=== PATIENT | male | born 1980 | race Caucasian/White ===

== ENCOUNTER 2018-02-22 09:46 | Day surgery (SDC) | payer BC, OTHER ==
[2018-02-21 09:06] VITALS: BMI 27.0
[~2018-02-22 09:46] MED LIST: DEXAMETHASONE SOD PHOSPHATE 10 MG/ML 1 ML VIAL IV ONE; HEPARIN SODIUM,PORCINE 5,000 UNIT/ML 1 ML VIAL SQ ONE; HYDROmorphone 1 MG/ML 1 ML SYRINGE IVP PRN; LIDOCAINE 1% 20 ML VIAL (10MG/ML) FOR IV START INTRADERMA PRN; MIDAZOLAM 2 MG/2 ML VIAL IV PRN; ONDANSETRON 4 MG/2 ML VIAL IVP ONE; ceFAZolin IN SWFI 2 GM/20 ML SYRINGE IVP ONE; fentaNYL (PF) 50 MCG/ML 2 ML AMP IV PRN
[2018-02-22 11:02] VITALS: RESP 16
[2018-02-22] MEDS: LACTATED RINGERS 1,000 ML IV SCH ×2 (11:13→11:14)
--- NOTE | 2018-02-22 11:31 | P.GSHP ---
History of Present Illness H&P Date: 02/22/18 Chief Complaint: Right inguinal hernia This is a 37-year-old male presents today for laparoscopic robotic-assisted repair of right inguinal hernia. Past Medical History Past Medical History: Asthma, Musculoskeletal Disorder Additional Past Medical History / Comment(s): Degenerative Disc Disease. History of Any Multi-Drug Resistant Organisms: None Reported Additional Past Surgical History / Comment(s): Jaw surgery, wisdom teeth extracted. Past Anesthesia/Blood Transfusion Reactions: No Reported Reaction Past Psychological History: No Psychological Hx Reported Smoking Status: Former smoker Past Alcohol Use History: Occasional Additional Past Alcohol Use History / Comment(s): Quit smoking 1 yr ago, smoked on and off for 10 yrs, 1/2-1PPD. Past Drug Use History: Marijuana Additional Drug Use History / Comment(s): Uses medical marijuana daily. Patient aware not to use 24hrs prior to procedure. - Past Family History Mother Family Medical History: No Reported History Medications and Allergies Home Medications Medication Instructions Recorded Confirmed Type Albuterol Inhaler [Ventolin Hfa 1 - 2 puff INHALATION Q6HR PRN 11/18/15 History Inhaler] EPINEPHrine (Auto Inject) [Epipen] 0.3 mg IM ONCE PRN #1 syringe 11/18/15 Rx Ibuprofen [Motrin] 800 mg PO HS 02/21/18 02/22/18 History Vicodin(Unknown Dose) 1 tab PO DAILY 02/21/18 02/22/18 History Allergies Allergy/AdvReac Type Severity Reaction Status Date / Time venom-honey bee Allergy Anaphylaxis Verified 02/22/18 11:03 [bee venom (honey bee)] Surgical - Exam Vital Signs Temp Pulse Resp BP Pulse Ox 97.6 F 79 16 165/75 98 02/22/18 11:00 02/22/18 11:00 02/22/18 11:00 02/22/18 11:00 02/22/18 11:00 - General well developed, no distress - Eyes PERRL - ENT normal pinna - Neck no masses - Respiratory normal expansion - Cardiovascular Rhythm: regular - Abdomen Abdomen: soft, non tender Assessment and Plan Assessment: Right inguinal hernia. We'll perform laparoscopic robotic-assisted repair.
--- NOTE | 2018-02-22 11:39 | P.ONQ ---
Anesthesiology Proc Note - PNB - Peripheral Nerve Block Performed Right Transversus Abdominis Single Time Out Performed: Yes Procedure Start Time: 11:24 Procedure Stop Time: 11:35 Indication: Requested by physician Specifically requested for management of pain by DrLiborio: Mal Eng Sedation Type: Sedate with meaningful contact maintained Preparation: Sterile Prep Position: Supine (pujunk) Needle Size: 100mm (4") Needle Gauge: 20 Technique: Ultrasound (ropivacaine 0.25 % with epi 1/200 20 ml plus lidocaine 1 % with ep 1/200 k 10 ml ) Blood Aspirated: No Pain Paresthesia on Injection Noted: No Resistance on Injection: Normal Events: Uneventful and Well Tolerated
[2018-02-22] MEDS ORDERED: GLYCOPYRROLATE 0.2 MG/ML 2 ML VIAL ONE (11:58)
[2018-02-22] MEDS ORDERED: ROCURONIUM BROMIDE 10 MG/ML 10 ML VIAL IV ONE (11:58)
[2018-02-22] MEDS ORDERED: LIDOCAINE 1%-EPI 1:100,000 20 ML VIAL ONE (11:58)
[2018-02-22] MEDS ORDERED: ROPIVACAINE 5 MG/ML 30 ML VIAL ONE (11:58)
[2018-02-22] MEDS ORDERED: MIDAZOLAM 2 MG/2 ML VIAL ONE (11:58)
[2018-02-22] MEDS ORDERED: NEOSTIGMINE 1 MG/ML 10 ML VIAL ONE (11:58)
[2018-02-22] MEDS ORDERED: fentaNYL (PF) 50 MCG/ML 2 ML AMP ONE (11:58)
[2018-02-22] MEDS ORDERED: HYDROmorphone (PF) 1 MG/ML ONE (11:58)
[2018-02-22] MEDS ORDERED: PROPOFOL 10 MG/ML 20 ML VIAL IV ONE (11:58)
[2018-02-22] MEDS ORDERED: BUPIVACAIN-EPI 0.25%-1:200,000 30 ML VIAL SQ ONE (12:28)
--- NOTE | 2018-02-22 12:54 | P.OP ---
Date of Procedure: 02/22/18 Preoperative Diagnosis: Right inguinal hernia Postoperative Diagnosis: Right inguinal hernia Procedure(s) Performed: For scopic robotic-assisted repair of right inguinal hernia Anesthesia: NEMO Surgeon: Mal Eng Pathology: none sent Condition: stable Disposition: PACU Description of Procedure: The patient's placed on the operating table in the supine position. The patient received general anesthesia. The patient's abdomen was prepped and draped in usual sterile fashion. The skin was anesthetized 1% local Xylocaine at the incision sites. Using an 11 blade a skin incision was made at the umbilicus. The fascia was grasped with a Carlos Alberto and then the peritoneal cavity was entered with the Veress needle. Position of the Veress needle was confirmed with a positive drop test. After adequate insufflation a 5 mm trocar was placed into the peritoneal cavity. The Laparoscope was placed the peritoneal cavity. And a robotic 8 mm trocar was placed in the right lateral position and then another 8 mm robotic trochars placed in the left lateral position. The original 5 mm trocar was exchanged for a 12 mm trocar. The patient was placed in reverse Trendelenburg and then the patient was docked to the robot. Next the peritoneum over top of the hernia was incised and then using blunt and sharp dissection and electrocautery the hernia sac was dissected free from the floor of the inguinal canal. The hernia sac was completely reduced into the peritoneal cavity. And then using the Pro transportation associate mesh the hernia was repaired. The peritoneum was then sutured with 20V lock suture. The patient was then undocked the robot. The needle was withdrawn from the peritoneal cavity. The umbilical trocar site was closed with 0 Ethibond suture. The skin was closed interrupted 3-0 Monocryl suture. Dermabond dressing was applied. Patient was sent to recovery in stable condition.
[2018-02-22 13:07] VITALS: TEMP 97.4
[2018-02-22] MEDS ORDERED: HYDROcodone/APAP 7.5-325MG 1 EACH TAB PO ONE (14:02)
[2018-02-22 14:23] VITALS: BP 150/72; PULSE 78
== END 2018-02-22 14:37 | disposition home or self-care (01) ==
LOC: OR 09:46
PROVIDERS: ATTEND Surgery
DX: K40.90 Unilateral inguinal hernia, without obstruction or gangrene, not specified as recurrent (principal); J45.909 Unspecified asthma, uncomplicated; Z79.1 Long term (current) use of non-steroidal anti-inflammatories (NSAID); Z79.891 Long term (current) use of opiate analgesic; Z91.030 Bee allergy status; Z87.891 Personal history of nicotine dependence
CPT/HCPCS: 64486; 49650; C1781; J2250; J1644; J1100; J2710; J2405; J3010; J1170; J2795; J2704; J0690; 64488

== ENCOUNTER 2021-07-23 23:49 | Emergency (ER) | payer BC ==
[2021-07-23 23:56] VITALS: TEMP 98
[2021-07-24] MEDS ORDERED: MORPHINE SULFATE 4 MG/ML SYRINGE IVP STA (00:34)
[2021-07-24] MEDS ORDERED: SODIUM CHLORIDE 0.9% 1,000 ML IV STA (00:34)
[2021-07-24] MEDS ORDERED: AMOXIC-POT CLAV 875MG STARTER PACK 2 TAB BTL PO STA (00:35)
[2021-07-24] MEDS ORDERED: AMPICILLIN-SULBACTAM 3 GM in SODIUM CHLORIDE 0.9% 100 ML IVPB STA (00:35)
[2021-07-24] MEDS ORDERED: BACITRACIN OINT 1 EACH PACKET TOPICAL ONE (01:13)
[2021-07-24] MEDS ORDERED: LIDOCAINE 1% INJ 10MG/ML (5 ML VIAL-PF) SQ ONE ×2 (01:14→01:16)
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
[2021-07-24 01:56] VITALS: RESP 16
[2021-07-24 02:08] VITALS: BP 168/97; PULSE 88
== END 2021-07-24 02:07 | disposition home or self-care (01) ==
LOC: EC 23:49
DX: Z88.1 Allergy status to other antibiotic agents (principal); Z91.030 Bee allergy status; J45.909 Unspecified asthma, uncomplicated; F17.200 Nicotine dependence, unspecified, uncomplicated
CPT/HCPCS: 12004; 99283; 96365; 96375; J2270; J2001; J0295

== ENCOUNTER 2023-09-09 04:56 | Inpatient (IN) | payer OTHER ==
[2023-09-09] MEDS: ONDANSETRON 4 MG/2 ML VIAL IVP STA (05:02)
[2023-09-09] MEDS: LORazepam 2 MG/ML INJ IV STA (05:08)
[2023-09-09] MEDS: SODIUM CHLORIDE 0.9% 1,000 ML IV STA ×2 (05:09→06:55)
[2023-09-09 05:15] LABS: Glucose,Whole Blood 217 mg/dL (70-110)
--- NOTE | 2023-09-09 05:22 | ED ---
General Adult HPI - General Chief complaint: Trauma Stated complaint: mental health Time Seen by Provider: 09/09/23 05:00 Source: patient, EMS, RN notes reviewed, old records reviewed Mode of arrival: EMS Limitations: no limitations - History of Present Illness Initial comments: Patient is a 42-year-old male who presents emergency department [facility] where he attempted suicide by hanging. Apparently patient had his sentencing today, and was found hanging in his cell today shortly prior to arrival. Face was blue. He was hanging by his sheet. Unknown how long he was hanging for. Presents for further evaluation at this time. After they cut the patient down he was combative but responses. Was brought here for further evaluation. Was spitting blood and had blood coming from his nose and was throwing up. Currently is cooperative, is complaining of jaw pain. Is able to answer basic questions and follow commands. Is tolerating oral secretions. Presents for further evaluation. Does not appear to want to speak about what occurred. - Related Data Home Medications Medication Instructions Recorded Confirmed Albuterol Inhaler [Ventolin Hfa 1 - 2 puff INHALATION Q6HR PRN 11/18/15 02/22/18 Inhaler] Ibuprofen [Motrin] 800 mg PO HS 02/21/18 02/22/18 Vicodin(Unknown Dose) 1 tab PO DAILY 02/21/18 02/22/18 Previous Rx's Medication Instructions Recorded EPINEPHrine (Auto Inject) [Epipen] 0.3 mg IM ONCE PRN #1 syringe 11/18/15 Docusate [Colace] 100 mg PO BID #20 capsule 02/22/18 HYDROcodone/APAP 7.5-325MG [[place] 1 tab PO Q4H PRN 3 Days #18 tab 02/22/18 7.5-325] Allergies Allergy/AdvReac Type Severity Reaction Status Date / Time cephalexin [From Keflex] Allergy Unknown Verified 07/23/21 23:57 Iodinated Contrast Media Allergy Unknown Verified 09/09/23 05:56 venom-honey bee Allergy Anaphylaxis Verified 07/23/21 23:56 [bee venom (honey bee)] Review of Systems ROS Statement: Those systems with pertinent positive or pertinent negative responses have been documented in the HPI. Review of Systems: CONST: Denies fever EYES: Denies blurry vision ENT: Endorses jaw pain C/V: Denies Chest pain RESP: Denies shortness of breath GI: Denies abdominal pain : Denies dysuria SKIN: Denies rash. MSK: Denies joint pain. NEURO: Denies headache ROS Other: All systems not noted in ROS Statement are negative. Past Medical History Past Medical History: Asthma, Musculoskeletal Disorder Additional Past Medical History / Comment(s): Degenerative Disc Disease. History of Any Multi-Drug Resistant Organisms: None Reported Additional Past Surgical History / Comment(s): Jaw surgery, wisdom teeth extracted. Past Anesthesia/Blood Transfusion Reactions: No Reported Reaction Past Psychological History: No Psychological Hx Reported Smoking Status: Current every day smoker Past Alcohol Use History: Occasional Past Drug Use History: Marijuana - Past Family History Mother Family Medical History: No Reported History General Exam - General Exam Comments Initial Comments: General: Appears in mild to moderate distress. HEAD: Abrasion over the forehead. Negative Liu sign. Negative raccoon eyes. EYES: PERRLA, EOMI, conjunctiva normal, no discharge. Pupils are 3 mm and equal bilaterally. ENT: Hearing grossly intact. No obvious stridor auscultated. Tenderness palpation along the mandible. Some tongue edema with bleeding from suspected laceration. No obvious posterior oropharyngeal swelling or bleeding. Uvula appears midline. Tolerating oral secretions. Patient does have red alarcon on either side of his neck likely from the sheath that was tied around it during the strangulation attempt. RESPIRATORY: Clear breath sounds bilaterally. No wheezes, rales, or rhonchi. Hypoxia. No respiratory distress. C/V: Regular rate and rhythm. S1 and S2 auscultated, no edema, peripheral pulses 2+ and intact throughout ABD: Abd is soft, nontender, nondistended EXT: Normal range of motion, no obvious deformity SKIN: Abrasion over the right hip area. Patient also has a superficial abrasion over the forehead. NEURO: Alert and oriented x 3-4. No obvious focal deficits. GCS is 14-15 at this time Limitations: no limitations Course Vital Signs 09/09/23 09/09/23 09/09/23 04:58 05:15 05:32 Temperature 99.8 F H Pulse Rate 115 H 97 100 Respiratory 20 18 13 Rate Blood Pressure 126/96 98/70 120/71 O2 Sat by Pulse 96 95 97 Oximetry 09/09/23 09/09/23 09/09/23 06:08 06:15 06:30 Temperature Pulse Rate 101 H 98 95 Respiratory 20 19 18 Rate Blood Pressure 116/62 116/62 115/70 O2 Sat by Pulse 96 97 94 L Oximetry Procedures - Restraint - Face to Face Restraint Occurrence 1 Patient's Immediate Situation: Endangers self safety, Endangers others' safety, Endangers staff safety, Violent behavior Patient's Reaction to the Intervention: Uncooperative Patient's Medical & Behavioral Condition: Awake, Alert, Follows directions Face to Face Eval of Restraint Date: 09/09/23 Face to Face Eval of Restraint Time: 05:05 Medical Decision Making - Medical Decision Making Was pt. sent in by a medical professional or institution (, PA, [employer], urgent c are, hospital, or fci...) When possible be specific @ -Patient presents from [facility] for evaluation following attempted suicide by strangulation and hanging. Did you speak to anyone other than the patient for history (EMS, parent, family, police, friend...)? What history was obtained from this source @ -I spoke with police officers who provided details of the scene. Did you review nursing and triage notes (agree or disagree)? Why? @ -I reviewed and agree with nursing and triage notes Were old charts reviewed (outside hosp., previous admission, EMS record, old EKG, old radiological studies, urgent care reports/EKG's, fci records)? Report findings @ -No old charts were reviewed Differential Diagnosis (chest pain, altered mental status, abdominal pain women, abdominal pain men, vaginal bleeding, weakness, fever, dyspnea, syncope, headache, dizziness, GI bleed, back pain, seizure, CVA, palpatations, mental health, musculoskeletal)? @ -Differential Musculoskeletal Muscular strain, contusion, ligament sprain, fracture, arthritis, septic arthritis, bursitis, cellulitis, muscle spasm, nerve compression, DVT, arterial occlusion, herpes zoster, electrolyte abnormality, tumor.... This is not meant to be in all inclusive list. Also includes soft tissue neck injury, intracranial injury, suicide attempt. This list is not all inclusive. EKG interpreted by me (3pts min.). @ -As above X-rays interpreted by me (1pt min.). @ -Chest x-ray reveals no obvious acute cardiopulmonary process. Pelvis x-ray shows no obvious acute injury. CT interpreted by me (1pt min.). @ -CT brain, C-spine, face negative for any obvious acute fracture or injury. CT angiogram of the neck negative for any obvious injury. U/S interpreted by me (1pt. min.). @ -None done What testing was considered but not performed or refused? (CT, X-rays, U/S, labs)? Why? @ -None What meds were considered but not given or refused? Why? @ -None Did you discuss the management of the patient with other professionals (professionals i.e. , PA, [employer], lab, RT, psych nurse, social work program coordinator, billing adjudicator, t eacher, trust officer, telehealth case manager)? Give summary @ -Discussed with trauma on-call Dr. Eng who accepted the admission onto his service. Was otherwise in agreement with the plan. Spoke with medicine consulting service Dr. Dennis who accepted the consult. Was smoking cessation discussed for >3mins.? @ -No Was critical care preformed (if so, how long)? @ -Yes, 32 minutes. Were there social determinants of health that impacted care today? How? (Homelessness, low income, unemployed, alcoholism, drug addiction, transportation, low edu. Level, literacy, decrease access to med. care, penitentiary, rehab)? @ -No Was there de-escalation of care discussed even if they declined (Discuss DNR or withdrawal of care, Hospice)? DNR status @ -No What co-morbidities impacted this encounter? (DM, HTN, Smoking, COPD, CAD, Cancer, CVA, ARF, Chemo, Hep., AIDS, mental health diagnosis, sleep apnea, morbid obesity)? @ -None Was patient admitted / discharged? Hospital course, mention meds given and route, prescriptions, significant lab abnormalities, going to OR and other pertinent info. @ -Patient presents following a strangulation attempt and suicide attempt at penitentiary. Currently has no significant injuries. Based on trauma activation criteria, with no obvious significant injuries that is at my discretion. Therefore he was not activated as a trauma. However ATLS protocol followed. Cervical collar placed. Patient treated with 2 L fluid bolus, Tdap, Zofran. Patient does have a contrast allergy and was given precontrast meds. Patient became more cooperative. Initially he did require restraints as he was combative and uncooperative. Patient did respond well and these were removed eventually. Trauma labs remarkable for leukocytosis of 22.9. Patient has a metabolic acidosis likely secondary to lactic acidosis likely secondary to the strangulation attempt and hypoxia. Lactic acid is 8.8. Urine is still pending. EKG shows no signs of acute ischemia. Imaging is unremarkable. On reevaluation, patient still complaining of jaw pain. Cervical collar was removed. Vital signs remained within acceptable limits. No respiratory distress. Still tolerating secretions. I did recommend observation at this time and he was in agreement the plan. At this time I did reach out to the on-call trauma surgery Dr. Eng was in agreement the plan. Plan is to repeat blood work as well as consult medicine Dr. Dennis. I spoke with Dr. Dennis who was in agreement the plan. Suicide pre cautions placed. Consult placed to psychiatry. Undiagnosed new problem with uncertain prognosis? @ -No Drug Therapy requiring intensive monitoring for toxicity (Heparin, Nitro, Insulin, Cardizem)? @ -No Were any procedures done? @ -No Diagnosis/symptom? @ -Suicide attempt by hanging and strangulation, lactic acidosis secondary to prolonged hypoxia Acute, or Chronic, or Acute on Chronic? @ -Acute Uncomplicated (without systemic symptoms) or Complicated (systemic symptoms)? @ -Complicated Side effects of treatment? @ -No Exacerbation, Progression, or Severe Exacerbation? @ -No Poses a threat to life or bodily function? How? (Chest pain, [place], [place], pneumonia, PE, COPD, DKA, ARF, appy, cholecystitis, CVA, Diverticulitis, Homicidal, Suicidal, threat to staff... and all critical care pts) @ -Yes - Lab Data Result diagrams: 09/09/23 05:09 09/09/23 05:10 Lab Results 09/09/23 09/09/23 09/09/23 Range/Units 05:09 05:10 05:10 WBC 22.9 H (3.8-10.6) k/uL RBC 4.96 (4.30-5.90) m/uL Hgb 15.0 (13.0-17.5) gm/dL Hct 43.7 (39.0-53.0) % MCV 88.0 (80.0-100.0) fL MCH 30.1 (25.0-35.0) pg MCHC 34.3 (31.0-37.0) g/dL RDW 12.7 (11.5-15.5) % Plt Count 420 (150-450) k/uL MPV 7.8 Neutrophils % 87 % Lymphocytes % 7 % Monocytes % 5 % Eosinophils % 0 % Basophils % 1 % Neutrophils # 19.9 H (1.3-7.7) k/uL Lymphocytes # 1.5 (1.0-4.8) k/uL Monocytes # 1.2 H (0-1.0) k/uL Eosinophils # 0.1 (0-0.7) k/uL Basophils # 0.1 (0-0.2) k/uL PT 11.2 (10.0-12.5) sec INR 1.0 (<1.2) APTT 25.3 (22.0-30.0) sec VBG pH (7.31-7.41) VBG pCO2 (37-51) mmHg VBG HCO3 (24-28) mmol/L Sodium 139 (137-145) mmol/L Potassium 3.4 L (3.5-5.1) mmol/L Chloride 107 (98-107) mmol/L Carbon Dioxide 14 L (22-30) mmol/L Anion Gap 18 mmol/L BUN 11 (9-20) mg/dL Creatinine 1.11 (0.66-1.25) mg/dL Est GFR (CKD-EPI)AfAm >90 (>60 ml/min/1.73 sqM) Est GFR (CKD-EPI)NonAf 82 (>60 ml/min/1.73 sqM) Glucose 201 H (74-99) mg/dL POC Glucose (mg/dL) (70-110) mg/dL POC Glu Textile Screen Printer ID Plasma Lactic Acid Rudi (0.7-2.0) mmol/L Calcium 9.2 (8.4-10.2) mg/dL Total Bilirubin 0.6 (0.2-1.3) mg/dL AST 39 (17-59) U/L ALT 38 (4-49) U/L Alkaline Phosphatase 67 (38-126) U/L Total Protein 7.9 (6.3-8.2) g/dL Albumin 4.6 (3.5-5.0) g/dL Salicylates mg/dL Acetaminophen ug/mL Serum Alcohol <10 mg/dL Blood Type Blood Type Recheck Bld Type Recheck Status Antibody Screen Spec Expiration Date 09/09/23 09/09/23 09/09/23 Range/Units 05:10 05:10 05:10 WBC (3.8-10.6) k/uL RBC (4.30-5.90) m/uL Hgb (13.0-17.5) gm/dL Hct (39.0-53.0) % MCV (80.0-100.0) fL MCH (25.0-35.0) pg MCHC (31.0-37.0) g/dL RDW (11.5-15.5) % Plt Count (150-450) k/uL MPV Neutrophils % % Lymphocytes % % Monocytes % % Eosinophils % % Basophils % % Neutrophils # (1.3-7.7) k/uL Lymphocytes # (1.0-4.8) k/uL Monocytes # (0-1.0) k/uL Eosinophils # (0-0.7) k/uL Basophils # (0-0.2) k/uL PT (10.0-12.5) sec INR (<1.2) APTT (22.0-30.0) sec VBG pH 7.42 H (7.31-7.41) VBG pCO2 25 L (37-51) mmHg VBG HCO3 16 L (24-28) mmol/L Sodium (137-145) mmol/L Potassium (3.5-5.1) mmol/L Chloride (98-107) mmol/L Carbon Dioxide (22-30) mmol/L Anion Gap mmol/L BUN (9-20) mg/dL Creatinine (0.66-1.25) mg/dL Est GFR (CKD-EPI)AfAm (>60 ml/min/1.73 sqM) Est GFR (CKD-EPI)NonAf (>60 ml/min/1.73 sqM) Glucose (74-99) mg/dL POC Glucose (mg/dL) (70-110) mg/dL POC Glu Textile Screen Printer ID Plasma Lactic Acid Rudi 8.8 H* (0.7-2.0) mmol/L Calcium (8.4-10.2) mg/dL Total Bilirubin (0.2-1.3) mg/dL AST (17-59) U/L ALT (4-49) U/L Alkaline Phosphatase (38-126) U/L Total Protein (6.3-8.2) g/dL Albumin (3.5-5.0) g/dL Salicylates mg/dL Acetaminophen ug/mL Serum Alcohol mg/dL Blood Type O Positive Blood Type Recheck O Pos Bld Type Recheck Status No Antibody Screen NEGATIVE Spec Expiration Date 09/12/2023 - 230909/09/23 09/09/23 Range/Units 05:13 05:14 WBC (3.8-10.6) k/uL RBC (4.30-5.90) m/uL Hgb (13.0-17.5) gm/dL Hct (39.0-53.0) % MCV (80.0-100.0) fL MCH (25.0-35.0) pg MCHC (31.0-37.0) g/dL RDW (11.5-15.5) % Plt Count (150-450) k/uL MPV Neutrophils % % Lymphocytes % % Monocytes % % Eosinophils % % Basophils % % Neutrophils # (1.3-7.7) k/uL Lymphocytes # (1.0-4.8) k/uL Monocytes # (0-1.0) k/uL Eosinophils # (0-0.7) k/uL Basophils # (0-0.2) k/uL PT (10.0-12.5) sec INR (<1.2) APTT (22.0-30.0) sec VBG pH (7.31-7.41) VBG pCO2 (37-51) mmHg VBG HCO3 (24-28) mmol/L Sodium (137-145) mmol/L Potassium (3.5-5.1) mmol/L Chloride (98-107) mmol/L Carbon Dioxide (22-30) mmol/L Anion Gap mmol/L BUN (9-20) mg/dL Creatinine (0.66-1.25) mg/dL Est GFR (CKD-EPI)AfAm (>60 ml/min/1.73 sqM) Est GFR (CKD-EPI)NonAf (>60 ml/min/1.73 sqM) Glucose (74-99) mg/dL POC Glucose (mg/dL) 217 H (70-110) mg/dL POC Glu Textile Screen Printer ID Kimmie Puckett Plasma Lactic Acid Rudi (0.7-2.0) mmol/L Calcium (8.4-10.2) mg/dL Total Bilirubin (0.2-1.3) mg/dL AST (17-59) U/L ALT (4-49) U/L Alkaline Phosphatase (38-126) U/L Total Protein (6.3-8.2) g/dL Albumin (3.5-5.0) g/dL Salicylates <1.0 mg/dL Acetaminophen <10.0 ug/mL Serum Alcohol mg/dL Blood Type Blood Type Recheck Bld Type Recheck Status Antibody Screen Spec Expiration Date Critical Care Time Critical Care Time: Yes Total Critical Care Time: 32 Disposition Clinical Impression: Suicide attempt by hanging, Lactic acidosis Disposition: ADMITTED IP TO THIS [facility] Condition: Serious Referrals: None,Stated [Primary Care Provider] - 1-2 days Time of Disposition: 06:41
[2023-09-09] MEDS: DEXAMETHASONE SOD PHOSPHATE 10 MG/ML 1 ML VIAL IVP STA (05:23)
--- NOTE | 2023-09-09 05:39 | XR ---
EXAMINATION TYPE: XR chest 1V portable DATE OF EXAM: 09/09/2023 COMPARISON: Prior chest x-ray October 15, 2012 HISTORY: Trauma. TECHNIQUE: Single frontal view of the chest is obtained. FINDINGS: Diminish inspiration on current study. There is no focal air space opacity, pleural effusi on, or pneumothorax seen. The cardiac silhouette size remains within normal limits. The osseous st ructures are intact. IMPRESSION: No acute process.
--- NOTE | 2023-09-09 05:40 | XR ---
EXAMINATION TYPE: XR pelvis AP view DATE OF EXAM: 09/09/2023 CLINICAL HISTORY: Trauma TECHNIQUE: A single AP view of the pelvis is obtained. COMPARISON: Prior pelvic x-ray 2012 FINDINGS: There is no acute fracture/dislocation evident in the pelvis. The hip and sacroiliac join ts appear symmetric and within normal limits. Pubic symphysis is intact. The overlying soft tissue a ppears unremarkable. IMPRESSION: There is no acute fracture or dislocation in the pelvis.
[2023-09-09] MEDS: methylPREDNISolone SOD SUCCI 125 MG/2 ML VIAL IV STA (05:51)
[2023-09-09] MEDS: diphenhydrAMINE 50 MG/ML 1 ML VIAL IVP STA (05:51)
[2023-09-09] MEDS: SODIUM CHLORIDE 0.9% 1,000 ML IV ONE (05:54)
[2023-09-09] MEDS: FAMOTIDINE 20 MG/2 ML VIAL IV STA (05:54)
[2023-09-09 06:06] LABS: Acetaminophen <10.0 ug/mL; Salicylate <1.0 mg/dL
[2023-09-09 06:06] LABS: ALT 38 U/L (4-49); AST 39 U/L (17-59); African American GFR (CKD) >90 (>60 ml/min/1.73 sqM); Albumin 4.6 g/dL (3.5-5.0); Alcohol <10 mg/dL; Alkaline Phosphatase 67 U/L (38-126); Anion Gap 18 mmol/L; Blood Urea Nitrogen 11 mg/dL (9-20); Calcium 9.2 mg/dL (8.4-10.2); Carbon Dioxide 14 mmol/L (22-30); Chloride 107 mmol/L (98-107); Glucose 201 mg/dL (74-99); Non-African American GFR(CKD) 82 (>60 ml/min/1.73 sqM); Potassium 3.4 mmol/L (3.5-5.1); Sodium 139 mmol/L (137-145); Total Bilirubin 0.6 mg/dL (0.2-1.3); Total Protein 7.9 g/dL (6.3-8.2)
[2023-09-09 06:11] LABS: VBG PH 7.42 (7.31-7.41)
[2023-09-09 06:12] LABS: Partial Thromboplastin Time 25.3 sec (22.0-30.0); Prothrombin Time 11.2 sec (10.0-12.5)
[2023-09-09] MEDS: fentaNYL (PF) 50 MCG/ML 2 ML AMP IVP STA (06:12)
--- NOTE | 2023-09-09 06:25 | CT ---
EXAMINATION TYPE: CT brain cspine wo con, CT facial bones wo con DATE OF EXAM: 09/09/2023 COMPARISON: Prior trauma CT 2012 HISTORY: SUICIDAL ATTEMPT BY HANGING AMS (accession [id number]), NASAL CONTUSIONS SUICIDAL ATTEMPT BY H ANGING (accession [id number]) CT DLP: 1290.9 (accession [id number]), 0 (accession [id number]) mGycm. Automated Exposure Control for Dos e Reduction was Utilized. TECHNIQUE: CT scan of the head, facial bones, and cervical spine are performed without contrast. FINDINGS: There is no acute intracranial hemorrhage or midline shift identified. Mild ventricular a nd sulcal prominence. Birch-white matter differentiation fairly well preserved. The calvarium is intac t. The mandible is intact. Temporomandibular joints are maintained bilaterally. Zygomatic arches are int act bilaterally. Surgical change to the maxillary sinus sam bilaterally are now present. Nasal bone s are intact. Orbital floors and sam are intact. Globes are intact bilaterally. Intraconal fat is p reserved. The pterygoid plates are intact. There is near complete opacification of the right sphenoid sinus. Nasal septum is deviated from the midline. Cervical spine is visualized in its entirety from C1 through upper thoracic levels and demonstrates s light scoliotic curvature without evidence of acute fracture or dislocation. Prevertebral soft tissu e appears within normal limits. The C1-C2 articulation is within normal limits on the coronal images . Vertebral body heights and disc space heights are fairly well maintained. Mild to moderate multile jamal anterior spurring in the mid to lower cervical spine is present. Lung apices are clear without pn eumothorax. IMPRESSION: 1. There is no acute fracture or dislocation evident in the cervical spine. 2. No acute intracranial hemorrhage or midline shift is seen. 3. No acute displaced facial bone fracture.
--- NOTE | 2023-09-09 06:27 | CT ---
EXAMINATION TYPE: CT angio neck DATE OF EXAM: 09/09/2023 HISTORY: SUICIDAL ATTEMPT BY HANGING COMPARISON: None. CT DLP: 647.3 mGycm. Automated Exposure Control for Dose Reduction was Utilized. TECHNIQUE: CTA scan of the head and neck is performed with IV Contrast, patient injected with 65 mL of Isovue 370, axial images are obtained, coronal and sagittal reformatted images are reviewed. 3D re constructed images are created on an independent workstation and reviewed. FINDINGS: Carotid/Vascular Structures: There is bovine type aortic arch which is normal variant. Vertebral line carotid arteries are contiguous. No linear hypodensity to suggest dissection. Patent external caroti d arteries bilaterally. Moderate peripheral plaque left carotid bulb extending into the proximal inte rnal carotid artery without hemodynamically significant stenosis. Entire distal bilateral internal ca rotid arteries not included. Vertebral arteries are codominant and patent to basilar junction. Other: Slight scoliotic curvature or positioning is seen. IMPRESSION: No significant vascular abnormality is seen. NASCET criteria was used in interpretation of this exam?
[2023-09-09 06:29] LABS: Basophils # (A) 0.1 k/uL (0-0.2); Basophils % (A) 1 %; Eosinophils # (A) 0.1 k/uL (0-0.7); Eosinophils % (A) 0 %; HCT 43.7 % (39.0-53.0); Lymphocytes # (A) 1.5 k/uL (1.0-4.8); Lymphocytes % (A) 7 %; MCH 30.1 pg (25.0-35.0); MCHC 34.3 g/dL (31.0-37.0); Mean Platelet Volume 7.8; Monocytes # (A) 1.2 k/uL (0-1.0); Monocytes % (A) 5 %; Neutrophils # (A) 19.9 k/uL (1.3-7.7); Neutrophils % (A) 87 %; Platelet Count 420 k/uL (150-450); RBC 4.96 m/uL (4.30-5.90); RDW 12.7 % (11.5-15.5); WBC 22.9 k/uL (3.8-10.6)
[2023-09-09] MEDS ORDERED: NALOXONE 0.4 MG/ML 1 ML VIAL IV PRN (06:33)
[2023-09-09] MEDS ORDERED: ONDANSETRON 4 MG/2 ML VIAL IVP PRN (06:33)
[2023-09-09] MEDS: MORPHINE SULFATE 4 MG/ML SYRINGE IVP STA (06:59)
[2023-09-09] MEDS ORDERED: HEPARIN SODIUM,PORCINE 5,000 UNIT/ML 1 ML VIAL SQ SCH (08:00)
[2023-09-09] MEDS: MORPHINE SULFATE 4 MG/ML SYRINGE IV PRN (09:17)
[2023-09-09 11:57] LABS: Appearance,Urine Clear (Clear); Bilirubin,Urine Negative (Negative); Blood,Urine Moderate (Negative); Color,Urine Colorless; Glucose,Urine (UA) Negative (Negative); Ketones,Urine Negative (Negative); Leukocyte Esterase,Urine Negative (Negative); Mucus,Urine Rare /hpf; Nitrite,Urine Negative (Negative); PH, Urine 5.5 (5.0-8.0); Protein,Urine Negative (Negative); RBC,Urine <1 /hpf (0-5); Specific Gravity,Urine 1.018 (1.001-1.035); Urobilinogen,Urine <2.0 mg/dL (<2.0); WBC,Urine <1 /hpf (0-5)
[2023-09-09 12:25] LABS: Amphetamine Screen,Urine Not Detected (NotDetected); Barbiturate Screen,Urine Not Detected (NotDetected); Benzodiazepines Screen,Urine Detected (NotDetected); Cocaine Screen,Urine Not Detected (NotDetected); Methadone Screen, Urine Not Detected (NotDetected); Opiate Screen,Urine Detected (NotDetected); Oxycodone Screen, Urine Not Detected (NotDetected); Phencyclidine Screen,Urine Not Detected (NotDetected); Tricyclic Antidepressant,Urine Not Detected (NotDetected); Urn Cannabinoid Scrn Not Detected (NotDetected)
[2023-09-09] MEDS: DEXAMETHASONE SOD PHOSPHATE 4 MG/ML 1 ML VIAL IVP SCH (12:54)
[2023-09-09] MEDS ORDERED: Magnesium Replacement Protocol 1 EACH MISC MISCELLANE PRN (12:59)
[2023-09-09] MEDS ORDERED: Potassium Replacement Protocol 1 EACH MISC MISCELLANE PRN (12:59)
--- NOTE | 2023-09-09 13:54 | CONS ---
CONSULTATION REASON FOR CONSULTATION: Pain and swelling of neck and multiple areas. HISTORY OF PRESENT ILLNESS: This is a 42-year-old gentleman with a past medical history of asthma, history of DJD, was apparently in the alf and his sentencing was today. The patient was found to be hanging and the patient was cyanosed. The patient was taken to [facility]. Currently, the patient had multiple bruises on the neck, in the axilla, head as well as the right hip area. The patient is complaining of severe pain all over multiple areas. The patient is unable to swallow also. The patient was admitted for further evaluation. There is no history of any fever, rigors, CAT scans, and other evaluation do not show any fractures. PAST MEDICAL HISTORY: Asthma, DJD, rest of the history and chart is also reviewed. HOME MEDICATIONS: Reviewed include none. ALLERGIES: Keflex, rest of allergies noted. FAMILY HISTORY: No history of heart disease or strokes in the family. SOCIAL HISTORY: History of smoking THC. REVIEW OF SYSTEMS: A 14-point review is negative except as mentioned earlier. PHYSICAL EXAMINATION: VITAL SIGNS: Pulse is 91, blood pressure 137/80, and respirations 16. HEENT: Conjunctivae normal. NECK: No jugular venous distention. CARDIOVASCULAR: S1, S2. RESPIRATIONS: Clear to auscultation. ABDOMEN: Soft, nontender. LEGS: No edema, no swelling. NERVOUS SYSTEM: No focal deficit. SKIN: Multiple lacerations, abrasions, abrasions present on the neck, right axilla, right gluteal area as well as head also present, possible subcutaneous abscess also present in the right axillary area. Skin as mentioned. JOINTS: No active deforming arthropathy. LABORATORY DATA: WBC 22.9, rest of the labs are noted. ASSESSMENT: 1. Status post attempted hanging and multiple contusions and bruises. 2. Dysphagia with throat pain. 3. Right axillary subcutaneous infection. 4. Elevated WBC. 5. Hypokalemia. 6. Elevated random glucose. 7. History of asthma. 8. History of DJD. RECOMMENDATIONS AND DISCUSSION: This 42-year-old gentleman presented with multiple complex medical issues. We will recommend to continue current management, continue symptomatic treatment, continue the pain management. See orders for details. We also recommended a short course of steroids and recommend pureed diet and pain management. DVT prophylaxis. Resume the home medications. Otherwise, we will follow the patient closely and the patient may be asked to follow up with the primary physician closely after discharge. Prognosis guarded currently. Further recommendations follow. MMODL / IJN: [id number] /
[2023-09-09] MEDS ORDERED: DEXTROSE 50% SYRINGE 50 ML IVP PRN ×2 (14:28)
[2023-09-09] MEDS: methylPREDNISolone SOD SUCCI 40 MG/ML 1 ML VIAL IV SCH (15:41)
[2023-09-09] MEDS: HYDROcodone/APAP 15 ML SOLUTION PO PRN (15:42)
[2023-09-09 17:14] LABS: Glucose,Whole Blood 142 mg/dL (70-110)
[2023-09-09] MEDS: INSULIN ASPART (NovoLOG) 100 UNIT/ML VIAL SQ SCH (17:55)
[2023-09-09 21:09] LABS: Glucose,Whole Blood 114 mg/dL (70-110)
[2023-09-09] MEDS: HEPARIN SODIUM,PORCINE 5,000 UNIT/ML 1 ML VIAL SQ SCH (21:18)
[2023-09-09] MEDS: PANTOPRAZOLE 40 MG/10 ML VIAL IVP SCH (21:18)
--- NOTE | 2023-09-10 02:01 | HP ---
HISTORY AND PHYSICAL The patient was seen and examined at 9:30 in the morning. CHIEF COMPLAINT: Suicide attempt. HISTORY OF PRESENT ILLNESS: This is a 42-year-old male who was brought in to the emergency room from the residential. The patient was seen and examined in the ER. The patient apparently attempted suicide by hanging. Per ER report, the patient was found hanging in his cell. Face was blue. He was hanging by his sheet. Unknown how long he was hanging for. After they cut down the sheet, the patient was combative but responsive. The patient does complain of some numbness in his fingertips and his toes. He complains of pain in his armpit and also some vision changes. He has abrasions around his neck. CT scan of the face and neck were negative for any fractures or any abnormality. CTA of the neck was negative as well. The patient does report some difficulty with swallowing. Lactic acid was elevated on admission. REVIEW OF SYSTEMS: Please refer to HPI, otherwise, unremarkable. PAST MEDICAL HISTORY: Asthma and degenerative disk disease. PAST SURGICAL HISTORY: Jaw surgery. SOCIAL HISTORY: He is a smoker and marijuana use. PHYSICAL EXAMINATION: GENERAL: No acute distress. HEENT: Head, there is abrasion over the forehead. No singh sign and negative raccoon eyes. Eyes, pupils are equal, round, reactive. The sclerae are clear. NECK: The patient has abrasions around his neck. CHEST: Respirations equal bilaterally. ABDOMEN: Soft, nontender, nondistended. EXTREMITIES: Normal range of motion. SKIN: There are abrasions under the right armpit and on the left hand. NEUROLOGIC: Alert and orientated x3. VITAL SIGNS: Vitals are stable. LABORATORY DATA: WBC is 22.9, HGB 15, and platelets 420. INR 1.0. Sodium is 139, potassium is 3.4, creatinine 1.1. Lactic acid 8.8, down to 0.9. Urine drug screen positive for opiates and benzodiazepines. ASSESSMENT: 1. Suicide attempt by attempted hanging. 2. Abrasion on the forehead and under the right arm pit. PLAN: Consult Medical Service for medical management. Consult placed for psychiatric care. Continue supportive care. Continue IV fluids. Continue clear liquids as tolerated. Continue pain management. Repeat labs in a.m. MMODL / IJN: [id number] /
[2023-09-10 05:53] LABS: Glucose,Whole Blood 127 mg/dL (70-110)
[2023-09-10 10:32] LABS: Basophils # (A) 0.02 X 10*3/uL (0.00-0.10); Basophils % (A) 0.1 %; Eosinophils # (A) 0 X 10*3/uL (0.04-0.35); Eosinophils % (A) 0 %; HCT 40.4 % (39.6-50.0); HGB 13.2 g/dL (13.0-17.0); Lymphocytes # (A) 0.82 X 10*3/uL (0.90-5.00); Lymphocytes % (A) 4.2 %; MCH 29.8 pg (27.0-32.0); MCHC 32.7 g/dL (32.0-37.0); MCV 91.2 FL (80.0-97.0); Mean Platelet Volume 9.1 FL (9.5-12.2); Monocytes % (A) 3.6 %; NRBC Per 100 WBC 0 X 10*3/uL (0.00-0.01); Neutrophils # (A) 17.97 X 10*3/uL (1.80-7.70); Neutrophils % (A) 91.5 %; Platelet Count 323 X 10*3/uL (140-440); RBC 4.43 X 10*6/uL (4.40-5.60); RDW 12.4 % (11.5-14.5); WBC 19.63 X 10*3/uL (4.50-10.00)
[2023-09-10 10:51] LABS: ALT 36 U/L (10-49); AST 83 U/L (14-35); Albumin/Globulin Ratio 1.43 Ratio (1.60-3.17); Alkaline Phosphatase 60 U/L (41-126); BUN/Creat Ratio 13.22 Ratio (12.00-20.00); Blood Urea Nitrogen 11.9 mg/dL (9.0-27.0); Calcium 9.2 mg/dL (8.7-10.3); Carbon Dioxide 21.2 mmol/L (21.6-31.8); Chloride 106 mmol/L (96-109); Globulin 2.8 g/dL (1.6-3.3); Glucose 115 mg/dL (70-110); Magnesium 2.2 mg/dL (1.5-2.4); Potassium 4.7 mmol/L (3.5-5.5); Sodium 139 mmol/L (135-145); Total Bilirubin 0.4 mg/dL (0.3-1.2); Total Protein 6.8 g/dL (6.2-8.2)
[2023-09-10 12:24] LABS: Glucose,Whole Blood 134 mg/dL (70-110)
--- NOTE | 2023-09-10 14:34 | P.CN ---
Psychiatric Consult - . Consult date: 09/10/23 Consult:: 09/10/23 13:06 IDENTIFYING DATA: This patient is a 42-year-old male, coming from shelter, has been in shelter for about 13 months, has 1 son unmarried REASON FOR REFERRAL: Psychiatry was consulted for suicide attempt, hanging HISTORY OF PRESENT ILLNESS: The patient presented to the hospital on 09/08 transferred from [facility] after a suicide attempt where he tried to hang himself in the cell. Patient apparently had a sentencing hearing earlier that day and received bad news. Patient was seen at the bedside today with 2 correctional officers. Patient claims that "alot of bad shit happened" and claims that he is likely going to penitentiary the rest of his life. He states that he has several charges including attempted murder and kidnapping. He states that he has not gotten sentenced yet however knows that he will be in penitentiary most likely the rest of his life. He claims that he is having depression and anxiety and states that he has been having this for several months now and has tried to ask for help in the shelter however has not received any. He claims that he wants to be admitted to the mental health unit and was fairly persistent and this, he was also asking for several different medications. Patient appears to be fairly manipulative. States that he is still having some suicidal thoughts, mainly passive in nature no plan. Claims that his sleep and appetite have been on and off. He denies any homical ideations, intent or plan. Patient denies any auditory, visual hallucinations and denies any paranoia or delusions. Patients admits to using cannabis in the past and claims that he used several other recreational drugs however this was before he was incarcerated. PAST PSYCHIATRIC HISTORY: Patient has a a history of depression and anxiety and states that he also has PTSD. He claims that he tried several different antidepressants in the past however was not able to name any of them. Patient denies any previous psychiatric hospitalizations. Patient denies any psychiatric outpatient follow-up. Patient denies any history of suicide attempts in the past. PAST MEDICAL HISTORY: Past Medical History: Asthma, Musculoskeletal Disorder Additional Past Medical History / Comment(s): Degenerative Disc Disease. History of Any Multi-Drug Resistant Organisms: None Reported Additional Past Surgical History / Comment(s): Jaw surgery, wisdom teeth extracted. Past Anesthesia/Blood Transfusion Reactions: No Reported Reaction Past Psychological History: No Psychological Hx Reported Smoking Status: Current every day smoker Past Alcohol Use History: Occasional Past Drug Use History: Marijuana ALLERGIES: as per EMR. CHEMICAL DEPENDENCY HISTORY: as per HPI. FAMILY PSYCHIATRIC/SUBSTANCE USE HISTORY: Denies SOCIAL HISTORY: Patient was born and raised in [facility]. Claims that he completed high school. 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 Claims that he has been in shelter now for about 13 months, states that he has 1 son and is unmarried. He claims that he did serve 12 years in penitentiary previously however did not share what the charges were. MENTAL STATUS EXAM: General Appearance: Patient appears to be muscular, tall, several tattoos, stated age is alert, fairly manipulative. Patient appears to have fair hygiene and grooming wearing hospital gown with fair eye contact. Behavior: Patient is calmly lying in bed without any agitated behavior. Manipulative Speech: Patient's speech is fluent and nonpressured. Mood/Affect: Patient reports their mood is "depressed and anxious", affect is congruent and constricted Suicidality/Homicidality: Patient denies having any suicidal or homicidal ideation intent or plan. Perceptions: Patient denies any visual hallucinations and denies any auditory hallucinations Though content/process: There is no evidence of any delusional thought content and thought process is linear and goal-directed. Focused on medications and going to the psychiatric unit Memory and concentration: AOX3, grossly intact for the purposes of this session. Can spell "WORLD" backwards Judgment and insight: Poor/impulsive IMPRESSIONS: Major depressive disorder Anxiety disorder unspecified Antisocial personality disorder Legal problems PLAN: -At this time patient DOES NOT meet criteria for inpatient psychiatric admission. -Would recommend the following medication changes/additions: Patient is agreeable to start Lexapro 10 mg daily for mood/anxiety, this can be likely increased in 2 to 4 weeks if patient is having partial improvement and tolerating it well. [place] 450 mg daily for suicidal thoughts/mood adjunct, Remeron 15 mg nightly for mood/insomnia/appetite [-Patient can proceed with mental health/psychiatric follow-up at shelter and present once patient is discharged -Communicated plan to patient's nurse -Psychiatry will sign off at this time. would suggest keeping patient for another day to see if medications are tolerated well before discharging back to shelter as this is a safer place to manage patient as he is a supposed elopement risk. psychiatry does not need to follow up tomorrow unless there is immediate concern or issues with medications. -Please contact with any questions. 09/10/23 14:33
[2023-09-10] MEDS: ESCITALOPRAM 10 MG TAB PO SCH (15:46)
[2023-09-10] MEDS: LITHIUM CARBONATE 150 MG CAP PO SCH (15:46)
[2023-09-10 16:58] LABS: Glucose,Whole Blood 115 mg/dL (70-110)
[2023-09-10 20:13] LABS: Glucose,Whole Blood 115 mg/dL (70-110)
[2023-09-10] MEDS: MIRTAZAPINE 15 MG TAB PO SCH (20:35)
[2023-09-10] MEDS ORDERED: MIRTAZAPINE 15 MG TAB PO SCH (21:00)
--- NOTE | 2023-09-11 01:34 | PN ---
PROGRESS NOTE DATE OF SERVICE: 09/10/2023 SUBJECTIVE: This is a 42-year-old gentleman, who was admitted after attempted hanging. He has significant dysphagia. No chest pain. No palpitations. No fever. OBJECTIVE: VITAL SIGNS: Pulse is 75, blood pressure 170/60, respirations 16. CHEST: A few scattered rhonchi. CARDIOVASCULAR: S1, S2. ABDOMEN: Soft. NERVOUS SYSTEM: Nonfocal. SKIN: Bruises present. LABORATORY DATA: WBC 19.63. Rest of the labs are noted. ASSESSMENT: 1. Status post attempted hanging and multiple contusions and bruises. 2. Dysphagia with throat pain. 3. Right axillary subcutaneous infection. 4. Elevated WBC. 5. Hypokalemia. 6. Elevated random glucose. 7. History of asthma. 8. History of degenerative joint disease. RECOMMENDATIONS: Recommended to continue current medications, continue symptomatic treatment. Otherwise, we will continue steroids for now. Advance diet and continue to monitor. Further recommendations to follow. MMODL / IJN: [id number] /
[2023-09-11 02:53] VITALS: PULSE 58; RESP 16
[2023-09-11 06:05] LABS: Glucose,Whole Blood 110 mg/dL (70-110)
[2023-09-11 08:23] VITALS: BP 142/80; TEMP 97.6
[2023-09-11 09:22] LABS: Basophils # (A) 0.03 X 10*3/uL (0.00-0.10); Basophils % (A) 0.1 %; Eosinophils # (A) 0.01 X 10*3/uL (0.04-0.35); Eosinophils % (A) 0 %; HCT 39.8 % (39.6-50.0); Lymphocytes # (A) 1.02 X 10*3/uL (0.90-5.00); Lymphocytes % (A) 5.1 %; MCH 29.7 pg (27.0-32.0); MCHC 32.7 g/dL (32.0-37.0); MCV 90.9 FL (80.0-97.0); Mean Platelet Volume 8.9 FL (9.5-12.2); Monocytes # (A) 1.16 X 10*3/uL (0.20-1.00); Monocytes % (A) 5.8 %; NRBC Per 100 WBC 0 X 10*3/uL (0.00-0.01); Neutrophils # (A) 17.83 X 10*3/uL (1.80-7.70); Neutrophils % (A) 88.5 %; Platelet Count 320 X 10*3/uL (140-440); RBC 4.38 X 10*6/uL (4.40-5.60); RDW 12.3 % (11.5-14.5); WBC 20.15 X 10*3/uL (4.50-10.00)
[2023-09-11 11:13] LABS: BUN/Creat Ratio 18.11 Ratio (12.00-20.00); Blood Urea Nitrogen 16.3 mg/dL (9.0-27.0); Calcium 8.9 mg/dL (8.7-10.3); Carbon Dioxide 23.5 mmol/L (21.6-31.8); Chloride 108 mmol/L (96-109); Glucose 102 mg/dL (70-110); Potassium 4.5 mmol/L (3.5-5.5); Sodium 141 mmol/L (135-145)
--- NOTE | 2023-09-11 23:22 | DS ---
DISCHARGE SUMMARY FINAL DIAGNOSES: 1. Status post attempted hanging and multiple contusions and bruises. 2. Dysphagia, throat pain, improved. 3. Right axilla subcutaneous infection, improved. 4. Elevated WBC. 5. Hypokalemia. 6. Elevated random glucose. 7. History of asthma. 8. History of DJD. DISCHARGE DISPOSITION: The patient will be discharged in stable condition with guarded prognosis. HISTORY OF PRESENT ILLNESS: This is a 42-year-old gentleman with a past medical history of multiple medical problems, was admitted after attempted hanging from [facility]. The patient was treated symptomatically. The patient was given short course of steroids and antibiotics. Surgery saw the patient. The patient will be discharged back to [facility] with further plans to follow up closely with [facility] including psych followup. PHYSICAL EXAMINATION: VITAL SIGNS: Stable. CARDIOVASCULAR: S1, S2. ABDOMEN: Soft. NERVOUS SYSTEM: No focal deficits. DISCHARGE MEDICATIONS: Recommended to continue with psych medications. Recommended by psychiatrist as such as Lexapro, lithium, Remeron as well as Medrol Dosepak, and Tylenol p.r.n. Follow with primary physician as recommended. MMODL / IJN: [id number] /
== END 2023-09-11 13:19 | DRG 923 ==
LOC: EC 04:56 → EEVIPCON 06:33 → 4SSUR 06:33
PROVIDERS: ADMIT Hospitalist; ATTEND Hospitalist
DX: T71.162A Asphyxiation due to hanging, intentional self-harm, initial encounter (principal); E87.20 Acidosis, unspecified; E87.6 Hypokalemia; F17.200 Nicotine dependence, unspecified, uncomplicated; F41.9 Anxiety disorder, unspecified; F43.10 Post-traumatic stress disorder, unspecified; F60.2 Antisocial personality disorder; R13.10 Dysphagia, unspecified; S00.81XA Abrasion of other part of head, initial encounter; Z65.3 Problems related to other legal circumstances; Z91.041 Radiographic dye allergy status; Z88.1 Allergy status to other antibiotic agents; Z91.030 Bee allergy status; Z78.1 Physical restraint status
CPT/HCPCS: 36415; 70450; 70486; 70498; 71045; 72125; 72170; 80048; 80053; 80143; 80179; 80306; 80320; 81001; 82550; 82803; 83036; 83605; 83735; 85025; 85610; 85730; 86850; 86900; 86901; 87040; 93005; 96361; 96374; 96375; 96376; 99291